=== PATIENT | male | born 1945 | race Asian ===

== ENCOUNTER 2020-03-12 15:24 | Emergency (ER) | payer OTHER ==
[~2020-03-12] VITALS: Ht 177.8 cm; Wt 72.6 kg
[2020-03-12 15:39] LABS: PLATELET COUNT 120 K/uL (142-355)
[2020-03-12 15:56] LABS: POTASSIUM 3.7 mmol/L (3.6-5.2)
[2020-03-12 17:00] VITALS: BP 142/88; TEMP 98.2
[2020-03-12] MEDS ORDERED: TRILEPTAL150 MG PO (22:08)
[2020-03-12] MEDS ORDERED: PROPRANOLOL10 MG PO (22:10)
[2020-03-12] MEDS ORDERED: ASPIRIN 81 LOW81 MG PO (22:12)
[2020-03-12] MEDS ORDERED: DIVALPROEX250 MG PO (22:15)
[2020-03-12] MEDS ORDERED: VITAMIN D35000 UNI1 PO (22:17)
[2020-03-12] MEDS ORDERED: SEROQUEL100 MG PO (22:18)
[2020-03-12] MEDS ORDERED: [UNRECOGNIZED DRUG - CODE] PO (22:19)
[2020-03-12] MEDS ORDERED: LIPITOR40 MG PO ×2 (22:20→22:29)
== END 2020-03-12 17:03 | disposition other institution (70) ==
LOC: ED 15:24
PROVIDERS: Family Medicine
DX: U07.1 COVID-19 (principal); F01.51 Vascular dementia, unspecified severity, with behavioral disturbance; Z04.6 Encounter for general psychiatric examination, requested by authority
CPT/HCPCS: 80053; 81000; 85027; 87635; 93005; 99283; U0003

== ENCOUNTER 2020-03-21 11:58 | Emergency (ER) | payer OTHER ==
[~2020-03-21] VITALS: Ht 177.8 cm; Wt 74.8 kg
[2020-03-21 11:58] VITALS: TEMP 97.2
[~2020-03-21 11:58] MED LIST: ASPIRIN 81 LOW81 MG PO; DIVALPROEX250 MG PO; LIPITOR40 MG PO; PROPRANOLOL10 MG PO; SEROQUEL100 MG PO; TRILEPTAL150 MG PO; VITAMIN D35000 UNI1 PO; [UNRECOGNIZED DRUG - CODE] PO
[2020-03-21 12:40] LABS: PLATELET COUNT 167 K/uL (142-355)
[2020-03-21 13:33] LABS: POTASSIUM 4.2 mmol/L (3.6-5.2)
[2020-03-21 17:16] VITALS: BP 143/91
== END 2020-03-21 17:16 | disposition still patient (30) ==
LOC: ED 12:07
DX: R06.09 Other forms of dyspnea (principal)
CPT/HCPCS: 36415; 36600; 80053; 82805; 85027; 85379; 87040; 96360; 96365; 96375; 99284; J0696; J1100; Q9963